=== PATIENT | female | born 1945 | race Caucasian/White ===

== ENCOUNTER 2020-04-26 06:49 | Day surgery (SDC) | payer MEDICARE, OTHER ==
[2020-04-25 11:03] LABS: COVID AG,FIA SOURCE NASOPHARYNGEAL
[~2020-04-26] VITALS: Ht 154.9 cm; Wt 63.2 kg
[~2020-04-26 06:49] MED LIST: SODIUM CHLORIDE 0.9% 1,000 ML IV ONE; SODIUM CHLORIDE 0.9% 1,000 ML ONE
[2020-04-26] MEDS ORDERED: MIDAZOLAM HCL 2 MG/2 ML VIAL ONE (08:11)
[2020-04-26] MEDS ORDERED: FentaNYL CITRATE-PF 100 MCG/2 ML VIAL ONE (08:11)
[2020-04-26] MEDS ORDERED: NIFE60TA85 PO (08:41)
[2020-04-26] MEDS ORDERED: METF-960 PO (08:41)
[2020-04-26] MEDS ORDERED: INSLAN SQ (08:41)
[2020-04-26] MEDS ORDERED: LISI-662 PO (08:41)
[2020-04-26] MEDS ORDERED: SITA50 PO (08:41)
[2020-04-26] MEDS ORDERED: CILO100T PO (08:41)
[2020-04-26] MEDS ORDERED: MONT-35 PO (08:41)
[2020-04-26] MEDS ORDERED: ROSU20TA23 PO (08:41)
[2020-04-26] MEDS ORDERED: ASPI81TA87 PO (08:41)
[2020-04-26] MEDS ORDERED: MethylPREDNISolone SOD SUCC 125 MG/2 ML VIAL IVP ONE ×2 (08:45→09:15)
[2020-04-26] MEDS ORDERED: MethylPREDNISolone SOD SUCC 125 MG/2 ML VIAL ONE (09:30)
[2020-04-26] MEDS ORDERED: ALBUTEROL SULFATE 2.5 MG/0.5 ML NEB SOLUTION NEB ONE (12:51)
[2020-04-26] MEDS ORDERED: BENZOCAINE 20% 50 MCG/SPRAY 57 GM TP ONE (12:52)
[2020-04-26] MEDS ORDERED: LIDOCAINE 2% 30 ML JELLY TP ONE (12:52)
[2020-04-26] MEDS ORDERED: OXYGEN THERAPY IH SCH (20:00)
[2020-04-27 06:51] LABS: GLUCOMETER DEV NAME(LOC) SDS.; GLUCOSE,POINT OF CARE 100 MG/DL (70-110)
== END 2020-04-26 10:55 | disposition home or self-care (01) ==
LOC: SURGERY 06:49 → EDSEX 09:00 → SURGERY 10:55
PROVIDERS: ATTEND Internal Medicine Critical Care Medicine
DX: J38.4 Edema of larynx (principal); B37.0 Candidal stomatitis; I10 Essential (primary) hypertension; E78.00 Pure hypercholesterolemia, unspecified; Z98.890 Other specified postprocedural states; Z88.8 Allergy status to other drugs, medicaments and biological substances
CPT/HCPCS: 31623; 31624; 71045; 71250; 82962; 87015; 87070; 87101; 87206; 87220; 87426; 88108; 88312; C9803; J2250; J2930; J3010; J7030; J7613

== ENCOUNTER 2020-07-27 07:55 | Day surgery (SDC) | payer MEDICARE, OTHER ==
[2020-07-25 11:02] LABS: COVID AG,FIA SOURCE NASOPHARYNGEAL
[~2020-07-27] VITALS: Ht 154.9 cm; Wt 61.4 kg
[~2020-07-27 07:55] MED LIST changes: +ASPI81TA87 PO; +CILO100T PO; +INSLAN SQ; +LISI-894 PO; +METF-960 PO; +MONT-35 PO; +NIFE60TA85 PO; +ROSU20TA23 PO; +SITA50 PO; -SODIUM CHLORIDE 0.9% 1,000 ML IV ONE; -SODIUM CHLORIDE 0.9% 1,000 ML ONE
[2020-07-27] MEDS ORDERED: SODIUM CHLORIDE 0.9% 1,000 ML ONE (08:05)
[2020-07-27 08:48] LABS: BASOPHILS % (AUTO) 0.6 % (0.0-2.0); EOSINOPHILS % (AUTO) 0.6 % (1.0-6.0); HEMATOCRIT 34.5 % (36-46); LYMPHOCYTES # (AUTO) 0.9 K/uL (1.0-4.8); LYMPHOCYTES % (AUTO) 6.2 % (22.0-44.0); MEAN CORPUSCULAR HEMOGLOBIN 26.8 pg (26.0-34.0); MEAN CORPUSCULAR HGB CONC 31.8 G/dL (31.0-37.0); MEAN CORPUSCULAR VOLUME 84 fL (80-100); MONOCYTES # (AUTO) 1.1 K/uL (0.1-1.0); MONOCYTES % (AUTO) 7.4 % (2.0-9.0); NEUTROPHILS # (AUTO) 13.1 K/uL (1.8-7.7); PLATELET COUNT (AUTO) 318 K/uL (150-450); RED CELL DISTRIBUTION WIDTH 15.4 % (11.5-14.5)
[2020-07-27 08:49] LABS: NEUTROPHILS % (AUTO) 85.2 % (40.0-70.0)
[2020-07-27 08:52] LABS: CALCIUM, TOTAL 9.4 mg/dL (8.8-10.5); CREATININE 1.08 mg/dL (0.60-1.30); POTASSIUM 3.9 mmol/L (3.5-5.1)
[2020-07-27 08:56] LABS: PROTHROMBIN TIME 11.1 SEC (9.4-11.6)
[2020-07-27 08:57] LABS: BILIRUBIN,TOTAL 0.2 mg/dL (0.1-1.0); TOTAL PROTEIN, SERUM 8.2 g/dL (6.4-8.2)
[2020-07-27] MEDS ORDERED: PRED20 PO (09:07)
[2020-07-27] MEDS: SODIUM CHLORIDE 0.9% 1,000 ML IV ONE (09:10)
[2020-07-27] MEDS ORDERED: FentaNYL CITRATE PF 100 MCG/2 ML VIAL ONE (10:43)
[2020-07-27] MEDS ORDERED: MIDAZOLAM HCL 2 MG/2 ML VIAL ONE (10:43)
== END 2020-07-27 15:45 | disposition home or self-care (01) ==
LOC: SDS 07:55
PROVIDERS: ATTEND Internal Medicine Critical Care Medicine
DX: R91.8 Other nonspecific abnormal finding of lung field (principal); C34.31 Malignant neoplasm of lower lobe, right bronchus or lung; E78.00 Pure hypercholesterolemia, unspecified; Z87.891 Personal history of nicotine dependence; Z98.890 Other specified postprocedural states; Z87.01 Personal history of pneumonia (recurrent); Z79.899 Other long term (current) drug therapy
CPT/HCPCS: 32408; 36415; 71045; 80053; 85025; 85610; 85730; 87015; 87070; 87101; 87206; 87426; 93005; 99152; C9803; J2250; J3010; J7030